=== PATIENT | female | born 1960 | race Two or more races ===

== ENCOUNTER 2018-01-30 18:10 | Emergency (ER) | payer MEDICAID ==
[~2018-01-30] VITALS: Ht 162.6 cm; Wt 77.1 kg
[2018-01-30 18:22] VITALS: BP 166/98
[2018-01-30] MEDS ORDERED: NKM (18:23)
[2018-01-30] MEDS ORDERED: Mylanta II UD 30ml ORAL ONE (18:45)
--- NOTE | 2018-01-30 19:10 | Emergency Room Report ---
History of Present Illness General Chief Complaint: Chest Pain Source: Patient Present Illness HPI Patient presents with chest pain. This been going on for possibly 5 days. One week ago she had an upper respiratory infection with fevers sore throat and ear pain. She was seen by her doctor started on Keflex, Promethazine DM, prednisone. She was also started on atenolol because she was told that her blood pressure was extremely high. Before this she never had high blood pressure. She's been taking Advil occasionally. The fevers and sore throat are improved. Over the last few days she's been having substernal chest pressure 6/10 radiating to her left shoulder. She doesn't believe it's exertional. She is also having difficulty sleeping and had quite a bit of anxiety. In 2014 she underwent exercise treadmill testing. After this she was prescribed medications for blood pressure and high cholesterol which were stopped a few months later as her doctors told her that she didn't need to take them. The patient is a very distant history of smoking. Her father of cancer and she is unsure about her mother's family history. No rashes, NVD, dysuria, extremity pain, calf pain or swelling, headache. Allergies: Coded Allergies: No Known Allergies (Unverified , 01/30/18) Patient History Past Medical History: see triage record Social History: Denies: smoking - Distant, alcohol use Social History Narrative with family Last Menstrual Period: n/a Now: No Reviewed Nursing Documentation: PMH: Agreed; PSxH: Agreed Nursing Documentation-PMH Hx Hypertension: Yes Review of Systems All Other Systems: negative except mentioned in HPI Physical Exam Vital Signs Date Time Temp Pulse Resp B/P (MAP) Pulse Ox O2 Delivery O2 Flow Rate FiO2 01/30/18 18:19 97.8 71 18 166/98 97.9 01/30/18 18:22 99 Room Air Sp02 EP Interpretation: reviewed, normal General Appearance: well appearing, no apparent distress, GCS 15 Head: normocephalic Eyes: bilateral eye normal inspection, bilateral eye PERRL ENT: moist mucus membranes Neck: supple Respiratory: chest non-tender, lungs clear, normal breath sounds Cardiovascular #1: regular rate, rhythm Cardiovascular #2: 2+ radial (R) Gastrointestinal: normal inspection, normal bowel sounds, non tender, no mass, non-distended Musculoskeletal: back normal, gait/station normal, normal range of motion Neurologic: alert, oriented x3, grossly normal Psychiatric: anxious - tearful Skin: normal inspection, warm/dry Medical Decision Making Diagnostic Impression: Primary Impression: Chest pain Qualified Codes: R07.9 - Chest pain, unspecified Additional Impressions: Resolving pharyngitis Leukocytosis Qualified Codes: D72.829 - Elevated white blood cell count, unspecified ER Course The patient presents with left-sided chest pain after a URI. Differential includes pericarditis, costochondritis, pneumonia, acute coronary syndrome, GERD amongst others. The fact she is on prednisone a taking Advil makes the ladder somewhat more likely. She's recently started on antihypertensives and has a distant smoking history so risk factors for ACS or well. Still we need to exclude cardiac cause. Evaluation will be EKG, chest x-ray and labs. The patient will be treated with Mylanta and Pepcid. EKG normal. Labs remarkable for leukocytosis (no left shift) with negative troponin. CXR normal. Improved with treatment. BP now stable and patient states she took Atenolol in am. Discussed findings and treatment plan. Patient stable for outpatient observation and treatment. Laboratory Tests Test 01/30/18 18:27 01/30/18 18:55 White Blood Count 18.0 K/UL (4.8-10.8) H Red Blood Count 4.59 M/UL (4.20-5.40) Hemoglobin 13.7 G/DL (12.0-16.0) Hematocrit 40.6 % (37.0-47.0) Mean Corpuscular Volume 88 FL (80-99) Mean Corpuscular Hemoglobin 29.9 PG (27.0-31.0) Mean Corpuscular Hemoglobin Concent 33.8 G/DL (32.0-36.0) Red Cell Distribution Width 12.7 % (11.6-14.8) Platelet Count 438 K/UL (150-450) Mean Platelet Volume 6.7 FL (6.5-10.1) Neutrophils (%) (Auto) % (45.0-75.0) Lymphocytes (%) (Auto) % (20.0-45.0) Monocytes (%) (Auto) % (1.0-10.0) Eosinophils (%) (Auto) % (0.0-3.0) Basophils (%) (Auto) % (0.0-2.0) Differential Total Cells Counted 100 Neutrophils % (Manual) 58 % (45-75) Lymphocytes % (Manual) 38 % (20-45) Monocytes % (Manual) 2 % (1-10) Eosinophils % (Manual) 0 % (0-3) Basophils % (Manual) 0 % (0-2) Metamyelocytes % % (0-0) Band Neutrophils 0 % (0-8) Atypical Lymphocytes 2+ Platelet Estimate Adequate Platelet Morphology Normal Red Blood Cell Morphology Normal Prothrombin Time 10.1 SEC (9.30-11.50) Prothrombin Time INR 1.0 (0.9-1.1) PTT 27 SEC (23-33) Sodium Level 139 MMOL/L (136-145) Potassium Level 3.5 MMOL/L (3.5-5.1) Chloride Level 102 MMOL/L (98-107) Carbon Dioxide Level 27 MMOL/L (21-32) Anion Gap 10 mmol/L (5-15) Blood Urea Nitrogen 22 mg/dL (7-18) H Creatinine 0.9 MG/DL (0.55-1.30) Estimate Glomerular Filtration Rate > 60 mL/min (>60) Glucose Level 129 MG/DL (74-106) H Calcium Level 9.2 MG/DL (8.5-10.1) Total Bilirubin 0.2 MG/DL (0.2-1.0) Aspartate Amino Transferase (AST) 14 U/L (15-37) L Alanine Aminotransferase (ALT) 40 U/L (12-78) Alkaline Phosphatase 114 U/L (46-116) Total Creatine Kinase 72 U/L (26-308) Troponin I 0.000 ng/mL (0.000-0.056) Pro-B-Type Natriuretic Peptide 230 pg/mL (0-125) H Total Protein 8.1 G/DL (6.4-8.2) Albumin 3.8 G/DL (3.4-5.0) Globulin 4.3 g/dL Albumin/Globulin Ratio 0.9 (1.0-2.7) L Urine Color Pale yellow Urine Appearance Clear Urine pH 7 (4.5-8.0) Urine Specific [place] 1.010 (1.005-1.035) Urine Protein Negative (NEGATIVE) Urine Glucose (UA) Negative (NEGATIVE) Urine Ketones Negative (NEGATIVE) Urine Occult Blood Negative (NEGATIVE) Urine Nitrite Negative (NEGATIVE) Urine Bilirubin Negative (NEGATIVE) Urine Urobilinogen Normal MG/DL (0.0-1.0) Urine Leukocyte Esterase Negative (NEGATIVE) EKG Diagnostic Results Rate: normal Rhythm: NSR ST Segments: no acute changes Rhythm Strip Diag. Results EP Interpretation: yes Rhythm: NSR, no PVC's, no ectopy Chest X-Ray Diagnostic Results Chest X-Ray Diagnostic Results : Chest X-Ray Ordered: Yes # of Views/Limited/Complete: 1 View Indication: Chest Pain Interpretation: no consolidation, no effusion, no pneumothorax, no acute cardiopulmonary disease Impression: No acute disease Electronically Signed by: Electronically signed by Jose Gee MD Last Vital Signs Date Time Temp Pulse Resp B/P (MAP) Pulse Ox O2 Delivery O2 Flow Rate FiO2 01/30/18 21:45 98.0 67 16 132/78 100 Room Air 98.0 Status: improved Disposition: HOME, SELF-CARE Condition: Improved Scripts Tramadol Hcl* (ULTRAM*) 50 Mg Tablet 50 MG ORAL Q6H PRN for For Pain, #10 TAB 0 Refills Prov: Jose Gee M.D. 01/30/18 Famotidine (PEPCID AC) 20 Mg Tablet 20 MG PO DAILY, #20 TAB Prov: Jose Gee M.D. 01/30/18 Jose Gee M.D. January 30, 2018 19:10
[2018-01-30 19:30] VITALS: BP 135/78
--- NOTE | 2018-01-30 19:32 | Diagnostic Imaging Report ---
EXAM: XR Chest, 1 View CLINICAL HISTORY: Chest pain TECHNIQUE: Frontal view of the chest. COMPARISON: 11/04/2011 FINDINGS: Lungs: Unremarkable. No consolidation. Pleural space: Unremarkable. No pneumothorax. Heart: Unremarkable. No cardiomegaly. Mediastinum: Unremarkable. Bones/joints: No acute osseous abnormality. IMPRESSION: No acute cardiopulmonary process.
[2018-01-30 19:47] LABS: APPEARANCE,URINE CLEAR; BILIRUBIN, URINE NEGATIVE (NEGATIVE); COLOR,URINE PALE YELLOW; GLUCOSE, URINE (UA) NEGATIVE (NEGATIVE); KETONES,URINE NEGATIVE (NEGATIVE); LEUKOCYTE ESTERASE ,URINE NEGATIVE (NEGATIVE); NITRITE,URINE NEGATIVE (NEGATIVE); PH,URINE 7 (4.5-8.0); PROTEIN,URINE NEGATIVE (NEGATIVE); UROBILINOGEN,URINE NORMAL MG/DL (0.0-1.0)
[2018-01-30 19:55] LABS: ANION GAP 10 mmol/L (5-15); BLOOD UREA NITROGEN 22 mg/dL (7-18); CALCIUM 9.2 MG/DL (8.5-10.1); CARBON DIOXIDE 27 MMOL/L (21-32); CHLORIDE 102 MMOL/L (98-107); CREATININE 0.9 MG/DL (0.55-1.30); POTASSIUM 3.5 MMOL/L (3.5-5.1); SODIUM 139 MMOL/L (136-145)
[2018-01-30 20:06] LABS: ALANINE AMINOTRANSFERASE 40 U/L (12-78); ALBUMIN 3.8 G/DL (3.4-5.0); ALBUMIN/GLOBULIN RATIO 0.9 (1.0-2.7); ALKALINE PHOSPHATASE 114 U/L (46-116); ASPARTATE AMINO TRANSFERASE 14 U/L (15-37); BILIRUBIN,TOTAL 0.2 MG/DL (0.2-1.0); CREATINE KINASE 72 U/L (26-308)
[2018-01-30 20:10] LABS: HEMATOCRIT 40.6 % (37.0-47.0); HEMOGLOBIN 13.7 G/DL (12.0-16.0); MEAN CORPUSCULAR VOLUME 88 FL (80-99); PLATELET COUNT 438 K/UL (150-450); RED BLOOD COUNT 4.59 M/UL (4.20-5.40); RED CELL DISTRIBUTION WIDTH 12.7 % (11.6-14.8)
[2018-01-30 20:30] VITALS: BP 132/78
[2018-01-30] MEDS ORDERED: TRAMADOL HCL50 MG ORAL (21:20)
[2018-01-30] MEDS ORDERED: PEPCID AC20 M2 PO (21:20)
[2018-01-30] MEDS ORDERED: TENORMIN50 MG ORAL (21:26)
[2018-01-30] MEDS ORDERED: PREDNISONE20 MG ORAL (21:26)
[2018-01-30] MEDS ORDERED: PROMETHAZINE-D118 ML ORAL (21:26)
[2018-01-30] MEDS ORDERED: CEPHALEXIN500 MG ORAL (21:26)
[2018-01-30 21:45] VITALS: BP 132/78
--- NOTE | 2018-02-01 23:15 | Cardiology Report ---
APPROVED REPORT EKG Measurement Heart [id number] Normal sinus rhythm Normal ECG
== END 2018-01-30 21:45 | disposition home or self-care (01) ==
LOC: EMR 19:04
DX: R07.9 Chest pain, unspecified (principal); D72.829 Elevated white blood cell count, unspecified; J02.9 Acute pharyngitis, unspecified; I10 Essential (primary) hypertension
CPT/HCPCS: 36415; 71045; 80053; 81003; 82550; 83880; 84484; 85007; 85025; 85610; 85730; 93005; 96374; 99284; S0028

== ENCOUNTER 2019-03-27 17:09 | Emergency (ER) | payer MEDICAID ==
[~2019-03-27] VITALS: Ht 162.6 cm; Wt 77.1 kg
[~2019-03-27 17:09] MED LIST: CEPHALEXIN500 MG ORAL; NKM; PEPCID AC20 M2 PO; PREDNISONE20 MG ORAL; PROMETHAZINE-D118 ML ORAL; TENORMIN50 MG ORAL; TRAMADOL HCL50 MG ORAL
[2019-03-27 17:43] VITALS: BP 133/81
--- NOTE | 2019-03-27 17:44 | NUR ---
ED Nurse Note: pt walked in c/o lower back pain started 4 days ago, pt denies trauma. pt stated she wasnt able to bend and sit down properly bacause it hurts. will continue to monitor.
[2019-03-27] MEDS ORDERED: traMADol 50mg tab ORAL ONE (17:45)
--- NOTE | 2019-03-27 17:51 | Emergency Room Report ---
History of Present Illness General Chief Complaint: Back Pain-No Injury Source: Patient Present Illness HPI 58-year-old female presents to the emergency department complaining of 10 out of 10 severity low back pain with radiation across the low back x4 days. Patient reports constant in nature she denies trauma or fall she suspects musculature in etiology however she wants to be checked out. Patient denies fevers or chills history of neoplastic disease, recent spinal procedures, neck pain/stiffness, headache, photophobia or history of chronic back pain. Nuys abdominal pain, urinary frequency, urgency, hematuria or dysuria. Patient describes the location of her pain to the on each side of the spine she denies midline spinal pain or tenderness. She denies paresthesias, saddle anesthesia, urinary incontinence or urinary retention. She denies lower extremity weakness. She states she is been taking Tylenol which has not been providing her any relief. Allergies: Coded Allergies: No Known Allergies (Unverified , 01/30/18) Patient History Past Medical History: see triage record Past Surgical History: none Pertinent Family History: none Now: No Reviewed Nursing Documentation: PMH: Agreed; PSxH: Agreed Nursing Documentation-PMH Past Medical History: No History, Except For Hx Hypertension: Yes Review of Systems All Other Systems: negative except mentioned in HPI Physical Exam Vital Signs Date Time Temp Pulse Resp B/P (MAP) Pulse Ox O2 Delivery O2 Flow Rate FiO2 03/27/19 17:12 98.2 77 18 133/81 (98) 94 Room Air Sp02 EP Interpretation: reviewed, normal General Appearance: no apparent distress, alert, GCS 15, non-toxic Head: normocephalic, atraumatic Eyes: bilateral eye normal inspection, bilateral eye PERRL ENT: hearing grossly normal, normal voice Neck: full range of motion Respiratory: lungs clear, normal breath sounds, speaking full sentences Cardiovascular #1: regular rate, rhythm Gastrointestinal: non tender, soft Genitourinary: normal inspection, no CVA tenderness Musculoskeletal: gait/station normal, normal range of motion, tender - Mild tenderness to palpation to paraspinal muscles of the lower back without midline tenderness. No spinous process TTP, no step-offs, no obvious deformities or indications of infection such as erythema, warmth or palpable mass/ fluctuance. Neurologic: alert, oriented x3, responsive, motor strength/tone normal, sensory intact, normal gait, speech normal, grossly normal Psychiatric: judgement/insight normal Medical Decision Making PA Attestation Dr. Gee Is my supervising Physician whom patient management has been discussed with. Diagnostic Impression: Primary Impression: Back pain Qualified Codes: M54.5 - Low back pain ER Course Pt. presents to ED c/o LBP. Ddx considered: epidural abscess, fracture, sprain/strain, meningitis, spinal chord injury, sciatica, cauda equina, Pyelonephritis, renal calculi just to name a few. Vital signs reviewed and are WNL during ED visit. Pt. is afebrile with no signs of infection No new symptoms, and denies recent trauma. No saddle anesthesia noted, Pt. denies incontinence Neurovascular is intact * Mild tenderness to palpation to paraspinal muscles of the lower back without midline tenderness. No spinous process TTP, no step-offs, no obvious deformities or indications of infection such as erythema, warmth or palpable mass/ fluctuance. ORDERS: -UA: Urinalysis showed moderate mucus, occasional bacteria and few squamous epithelial cells there is some elevated white blood cells as well as leukocytes this could be elevated coming from leukocoria however infection versus contamination is also possible. Discussed these results with the patient and due to patient not having urinary symptoms at this time will await microbiology results of the urine and if necessary we will start antibiotics then. Plan for abnormal urinary results will be delayed antibiotics in accordance with results from final microbiology report. INTERVENTIONS: - Lidoderm TP -Tramadol PO Upon reevaluation the patient states that her pain has completely resolved D/W Pt. that for further pain management is it recommended to consult PCP or a Chronic Pain management doctor. A provider who can safely prescribe controlled substances with close follow up. DISCHARGE: At this time pt. is stable for d/c to home. Will provide printed patient care instructions, and any necessary prescriptions. Care plan and follow up instructions have been discussed with the patient prior to discharge. Labs Test 03/27/19 17:40 Urine Color Pale yellow Urine Appearance Clear Urine pH 6 (4.5-8.0) Urine Specific [place] 1.015 (1.005-1.035) Urine Protein Negative (NEGATIVE) Urine Glucose (UA) Negative (NEGATIVE) Urine Ketones 1+ (NEGATIVE) Urine Blood Negative (NEGATIVE) Urine Nitrite Negative (NEGATIVE) Urine Bilirubin Negative (NEGATIVE) Urine Urobilinogen Normal MG/DL (0.0-1.0) Urine Leukocyte Esterase 2+ (NEGATIVE) Urine RBC 2-4 /HPF (0 - 2) Urine WBC 5-10 /HPF (0 - 2) Urine Squamous Epithelial Cells Few /LPF (NONE/OCC) Urine Bacteria Occasional /HPF (NONE) Urine Mucus Moderate /LPF (NONE/OCC) Last Vital Signs Date Time Temp Pulse Resp B/P (MAP) Pulse Ox O2 Delivery O2 Flow Rate FiO2 03/27/19 17:43 98.2 77 18 133/81 94 Room Air Disposition: HOME, SELF-CARE Condition: Stable Scripts Methocarbamol* (ROBAXIN-750*) 750 Mg Tablet 750 MG PO QID, #28 TAB 0 Refills Prov: Gloria Bynum 03/27/19 Lidocaine (Lidoderm) 1 Each Adh..patch 1 PATCH TOPIC DAILY, #30 PATCH 0 Refills Patch(es) may remain in place for up to 12 hours in any 24-hour period. Prov: Gloria Bynum 03/27/19 Patient Instructions: Back Pain, Adult Additional Instructions: Take medications as directed. Follow up with a Primary Care Provider in 3-5 days, even if your symptoms have resolved. --Please review list of primary care clinics, if you do not already have a primary care provider Return sooner to ED if new symptoms occur, or current symptoms become worse. Do not drink alcohol, drive, or operate heavy machinery while taking Robaxin ( Muscle Relaxers) as this may cause drowsiness. - Please note that this Emergency Department Report was dictated using Asterisktranscriptionist technology software, occasionally this can lead to erroneous entry secondary to interpretation by the dictation equipment. Gloria Bynum Mar 27, 2019 17:51
--- NOTE | 2019-03-27 18:01 | NUR ---
ED Nurse Note: pt medicated and able to tolerate medication. will continue to monitor.
[2019-03-27 18:04] LABS: APPEARANCE,URINE CLEAR; BILIRUBIN, URINE NEGATIVE (NEGATIVE); COLOR,URINE PALE YELLOW; GLUCOSE, URINE (UA) NEGATIVE (NEGATIVE); KETONES,URINE 1+ (NEGATIVE); LEUKOCYTE ESTERASE ,URINE 2+ (NEGATIVE); NITRITE,URINE NEGATIVE (NEGATIVE); PH,URINE 6 (4.5-8.0); PROTEIN,URINE NEGATIVE (NEGATIVE); UROBILINOGEN,URINE NORMAL MG/DL (0.0-1.0)
[2019-03-27] MEDS ORDERED: ROBAXIN-750750 MG PO (18:58)
[2019-03-27] MEDS ORDERED: LIDODERM700 M1 TOPIC (18:58)
[2019-03-27 19:00] VITALS: BP 133/81
--- NOTE | 2019-03-27 19:00 | NUR ---
ER DISCHARGE NOTE: Patient is cleared to be discharged per ERMD, pt is aox4, on room air, with stable vital signs. pt was given dc and prescription instructions, pt was able to verbalize understanding, pt id band removed without complications. pt is able to ambulate with steady gait. pt took all belongings.
== END 2019-03-27 19:15 | disposition home or self-care (01) ==
LOC: EMR 19:04
DX: M54.5 Low back pain (principal); I10 Essential (primary) hypertension
CPT/HCPCS: 81003; 99283

== ENCOUNTER 2020-03-17 13:56 | Emergency (ER) | payer MEDICAID ==
[~2020-03-17] VITALS: Ht 162.6 cm; Wt 72.6 kg
[~2020-03-17 13:56] MED LIST changes: +LIDODERM700 M1 TOPIC; +ROBAXIN-750750 MG PO
[2020-03-17 14:05] VITALS: BP 162/93
--- NOTE | 2020-03-17 14:05 | NUR ---
ED Nurse Note: Pt walked in to ED from home c/o right earache since x 4 days ago. Denies any drainage. AAOX4, verbally responisve. No SOB. ERPA at bedside.
[2020-03-17] MEDS ORDERED: AUGMENTIN 875-1 EAC1 ORAL (14:09)
[2020-03-17] MEDS ORDERED: IBUPROFEN600 M1 ORAL (14:09)
--- NOTE | 2020-03-17 14:09 | Emergency Room Report ---
History of Present Illness General Chief Complaint: Earache Source: Patient Present Illness HPI 59-year-old female with no symptom past medical history here complaining of right-sided ear and sinus pain x2 days. Complains of right-sided throat pain however denies any fever and chills, cough and congestion, loss of taste and smell, diarrhea. Denies coming contact with someone who is positive for COVID. Rates the pain 3-10 without radiation. Denies any water exposure. Denies any hearing loss, dizziness, vertigo, nausea vomiting. Has not taken medication for symptom relief. Denies tobacco smoke, alcohol use, no drug use. 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 Patient History Past Medical History: see triage record Past Surgical History: none Pertinent Family History: none Last Menstrual Period: na Now: No Immunizations: UTD Reviewed Nursing Documentation: PMH: Agreed; PSxH: Agreed Nursing Documentation-PMH Past Medical History: No Stated History Hx Hypertension: Yes Review of Systems All Other Systems: negative except mentioned in HPI Physical Exam Vital Signs Date Time Temp Pulse Resp B/P (MAP) Pulse Ox O2 Delivery O2 Flow Rate FiO2 03/17/20 14:00 98.6 101 18 162/93 (116) 97 Room Air Sp02 EP Interpretation: reviewed, normal General Appearance: no apparent distress, alert, GCS 15, non-toxic Head: normocephalic, atraumatic Eyes: bilateral eye normal inspection, bilateral eye PERRL ENT: hearing grossly normal, normal pharynx, no angioedema, normal voice, TMs + canals normal, other - Right-sided frontal and maxillary sinus tender to palpation Neck: full range of motion, supple, supple/symm/no masses Respiratory: chest non-tender, lungs clear, normal breath sounds, no rhonchi, no respiratory distress, no retraction, no wheezing, speaking full sentences Cardiovascular #1: regular rate, rhythm, no edema, no murmur, normal capillary refill Gastrointestinal: normal bowel sounds, non tender, soft, non-distended, no guarding, no rebound Rectal: deferred Genitourinary: no CVA tenderness Musculoskeletal: back normal, other - No mastoid tenderness noted Neurologic: alert, motor strength/tone normal, oriented x3, sensory intact, responsive, speech normal Psychiatric: judgement/insight normal, memory normal, mood/affect normal, no suicidal/homicidal ideation Skin: no rash Lymphatic: no adenopathy Medical Decision Making PA Attestation All my diagnosis and treatment plans were reviewed ad discussed with my supervising physician Dr. Singletary Diagnostic Impression: Primary Impression: Sinusitis ER Course 59-year-old female with no symptom past medical history here complaining of right-sided ear and sinus pain x2 days. Complains of right-sided throat pain however denies any fever and chills, cough and congestion, loss of taste and smell, diarrhea. Denies coming contact with someone who is positive for COVID. Rates the pain 3-10 without radiation. Denies any water exposure. Denies any hearing loss, dizziness, vertigo, nausea vomiting. Has not taken medication for symptom relief. Denies tobacco smoke, alcohol use, no drug use. Ddx considered but are not limited to: Sinusitis, coronavirus, otitis media, otitis externa, mastoiditis Vital signs: are WNL, pt. is afebrile H&PE are most consistent with: sinusitis ORDERS: Augmentin, Motrin ED INTERVENTIONS: None required at this time. DISCHARGE: At this time pt. is stable for d/c to home. Will provide printed patient care instructions, and any necessary prescriptions. Care plan and follow up instructions have been discussed with the patient prior to discharge. Earache is secondary to sinus infection, patient take medication as directed, if worsening symptom return to emergency room. Follow-up primary care provider. Last Vital Signs Date Time Temp Pulse Resp B/P (MAP) Pulse Ox O2 Delivery O2 Flow Rate FiO2 03/17/20 14:00 98.6 101 18 162/93 (116) 97 Room Air Disposition: HOME, SELF-CARE Condition: Stable Scripts Ibuprofen* (MOTRIN*) 600 Mg Tablet 600 MG ORAL THREE TIMES A DAY, #30 TAB Prov: Rosalva Burton 03/17/20 Amoxicillin/Potassium Clav 875-125* (AUGMENTIN 875-125 TABLET*) 1 Each Tablet 1 TAB ORAL TWICE A DAY for 10 Days, #20 TAB Prov: Rosalva Burton 03/17/20 Patient Instructions: Sinusitis, Adult, [id number] Additional Instructions: Earache secondary to sinus infection, take medication as a primary care provider , if worsening symptoms return to the emergency room Rosalva Burton Mar 17, 2020 14:09
[2020-03-17 14:16] VITALS: BP 162/93
--- NOTE | 2020-03-17 14:16 | NUR ---
ED Nurse Note: Pt cleared by ERPA for discharge. DC instructions/prescription was given and explained to pt and verbalized understanding of teachings. All medical deviecs such as ID band removed. Pt is AAO x4, ambulatory and left with all personal belongings.
== END 2020-03-17 14:16 | disposition home or self-care (01) ==
LOC: EMR 14:08
DX: J32.9 Chronic sinusitis, unspecified (principal); I10 Essential (primary) hypertension
CPT/HCPCS: 99282